=== PATIENT | male | born 1940 ===

== ENCOUNTER → 2020-03-22 | Outpatient (CLI) | payer MEDICARE | LOC: LAB SHORT 08:05 → PLD 08:05 | DX: L30.8 Other specified dermatitis (principal) | CPT/HCPCS: 88312 ==

== ENCOUNTER 2021-09-25 11:15 | Day surgery (SDC) | payer MEDICARE ==
[~2021-09-25] VITALS: Ht 175.3 cm; Wt 104.2 kg
[2021-09-25] MEDS ORDERED: Metoprolol Succ25 MG PO (11:34)
[2021-09-25] MEDS ORDERED: ELIQUIS5 M2 PO (11:34)
[2021-09-25] MEDS ORDERED: AMLO10 PO (11:34)
[2021-09-25] MEDS ORDERED: LOSARTAN POTAS100 M1 PO (11:35)
[2021-09-25] MEDS ORDERED: TRAZ150T57 PO (11:35)
[2021-09-25] MEDS ORDERED: ATOR10 PO (11:35)
[2021-09-25] MEDS ORDERED: METF500 PO (11:35)
== END 2021-09-25 12:58 | disposition home or self-care (01) ==
LOC: ORSCSDS 11:15
PROVIDERS: Ophthalmology
PROC: 08RJ3JZ Replacement of Right Lens with Synthetic Substitute, Percutaneous Approach (ICD-10-PCS; principal; 2021-09-25 13:00)
DX: H25.13 Age-related nuclear cataract, bilateral (principal); I48.91 Unspecified atrial fibrillation; E11.9 Type 2 diabetes mellitus without complications; R06.02 Shortness of breath; Z79.84 Long term (current) use of oral hypoglycemic drugs; Z79.899 Other long term (current) drug therapy
CPT/HCPCS: 82947; J2001; J2250; J3010; J3301; J7040; V2632

== ENCOUNTER 2022-01-31 11:48 | Emergency (ER) | payer MEDICARE ==
[~2022-01-31] VITALS: Ht 175.3 cm; Wt 103.4 kg
[~2022-01-31 11:48] MED LIST: AMLO10 PO; ATOR10 PO; ELIQUIS5 M2 PO; LOSARTAN POTAS100 M1 PO; METF500 PO; Metoprolol Succ25 MG PO; TRAZ150T57 PO
[2022-01-31 12:20] LABS: BASOPHILS ABSOLUTE AUTO 0.02 K/mm3 (0.00-0.23); BASOPHILS PERCENT AUTO 0 % (0-2); EOSINOPHILS ABSOLUTE AUTO 0.05 K/mm3 (0.00-0.68); EOSINOPHILS PERCENT AUTO 1 % (0-6); Hematocrit 44.9 % (37.0-53.0); Hemoglobin 15.5 g/dL (13.5-17.5); IMMATURE GRAN ABSOLUTE AUTO 0.02 K/mm3 (0.00-0.10); IMMATURE GRAN PERCENT AUTO 0 % (0-1); LYMPHOCYTES ABSOLUTE AUTO 0.96 K/mm3 (0.84-5.20); LYMPHOCYTES PERCENT AUTO 12 % (21-46); MONOCYTES ABSOLUTE AUTO 0.72 K/mm3 (0.16-1.47); MONOCYTES PERCENT AUTO 9 % (4-13); Mean Corpuscular HGB 32.4 pg (26.0-34.0); Mean Corpuscular HGB Conc 34.5 g/dL (31.5-36.5); Mean Corpuscular Volume 94 fL (80-100); Mean Platelet Volume 9.8 fL (9.1-12.4); NEUTROPHILS ABSOLUTE AUTO 6.47 K/mm3 (1.96-9.15); NEUTROPHILS PERCENT AUTO 79 % (41-73); Platelet Count 145 K/mm3 (150-400); RDW Coefficient Variation 13.5 % (11.7-14.2); RDW Standard Deviation 46.8 fL (35.1-46.3); Red Blood Cell Count 4.79 M/mm3 (4.30-5.90); White Blood Cell Count 8.24 K/mm3 (4.00-11.30)
[2022-01-31 12:40] LABS: Albumin/Globulin Ratio 1.2 (0.8-1.8); Bilirubin, Total 0.8 mg/dL (0.1-1.0); Bun/Creatinine Ratio 16.2 (12.0-20.0); Calcium, Blood 9.2 mg/dL (8.5-10.1); Creatinine, Blood 0.93 mg/dL (0.60-1.20); Globulin, Blood 3.3 g/dL (2.2-4.0); Magnesium, Blood 1.7 mg/dL (1.6-2.4); Potassium, Blood 3.5 mmol/L (3.5-5.5); Total Protein, Blood 7.3 g/dL (6.4-8.2)
[2022-01-31 13:08] LABS: Influenza A, PCR NEGATIVE (NEGATIVE); Influenza B, PCR NEGATIVE (NEGATIVE); Resp Syncytial Virus, PCR NEGATIVE (NEGATIVE); SARS-Cov-2 (COVID-19) PCR, MMC NEGATIVE (NEGATIVE)
[2022-01-31] MEDS ORDERED: ONDA4ODT MM (14:23)
== END 2022-01-31 15:03 | disposition home or self-care (01) ==
LOC: ER 11:48
PROVIDERS: Student in an Organized Health Care Education/Training Program
DX: R07.9 Chest pain, unspecified (principal); R11.2 Nausea with vomiting, unspecified; I48.91 Unspecified atrial fibrillation; I10 Essential (primary) hypertension; E11.9 Type 2 diabetes mellitus without complications; E78.5 Hyperlipidemia, unspecified; Z20.822 Contact with and (suspected) exposure to COVID-19; Z79.01 Long term (current) use of anticoagulants; Z79.84 Long term (current) use of oral hypoglycemic drugs; Z79.899 Other long term (current) drug therapy
CPT/HCPCS: 0241U; 71046; 80053; 83690; 83735; 83880; 84484; 85025; A9270; J7030

== ENCOUNTER 2025-01-27 10:58 | Emergency (ER) | payer OTHER ==
[~2025-01-27] VITALS: Ht 177.8 cm; Wt 90.7 kg
[~2025-01-27 10:58] MED LIST changes: +ONDA4ODT MM
[2025-01-27 12:21] LABS: BASOPHILS ABSOLUTE AUTO 0.03 K/mm3 (0.00-0.23); BASOPHILS PERCENT AUTO 0 % (0-2); EOSINOPHILS ABSOLUTE AUTO 0.03 K/mm3 (0.00-0.68); EOSINOPHILS PERCENT AUTO 0 % (0-6); Hematocrit 46.8 % (37.0-53.0); Hemoglobin 16.7 g/dL (13.5-17.5); IMMATURE GRAN ABSOLUTE AUTO 0.05 K/mm3 (0.00-0.10); IMMATURE GRAN PERCENT AUTO 0 % (0-1); LYMPHOCYTES ABSOLUTE AUTO 1.29 K/mm3 (0.84-5.20); LYMPHOCYTES PERCENT AUTO 12 % (21-46); MONOCYTES ABSOLUTE AUTO 0.68 K/mm3 (0.16-1.47); MONOCYTES PERCENT AUTO 6 % (4-13); Mean Corpuscular HGB Conc 35.7 g/dL (31.5-36.5); Mean Corpuscular Volume 95 fL (80-100); NEUTROPHILS ABSOLUTE AUTO 9.05 K/mm3 (1.96-9.15); NEUTROPHILS PERCENT AUTO 81 % (41-73); NRBC ABSOLUTE 0.00 K/mm3 (0.00-0.02); NRBC Auto 0.0 /100 WBC (0.0-0.2); Platelet Count 170 K/mm3 (150-400); RDW Coefficient Variation 13.5 % (11.7-14.2); RDW Standard Deviation 46.3 fL (35.1-46.3)
[2025-01-27 12:38] LABS: Alanine Aminotransfer (ALT/SGP 51.0 U/L (12-78); Albumin, Blood 4.2 g/dL (3.4-5.0); Albumin/Globulin Ratio 1.0 (0.8-1.8); Anion Gap 9.0 mmol/L (3-11); Aspartate Aminotrans (AST/SGOT 54.0 U/L (12-37); Bilirubin, Total 1.1 mg/dL (0.1-1.0); Blood Urea Nitrogen 22.0 mg/dL (8-24); CO2, Blood 27.0 mmol/L (21-32); Calcium, Blood 9.3 mg/dL (8.5-10.1); Chloride, Blood 99.0 mmol/L (98-108); Creatinine, Blood 0.86 mg/dL (0.60-1.20); Globulin, Blood 4.2 g/dL (2.2-4.0); Glucose, Blood 199.0 mg/dL (70-99); Potassium, Blood 4.4 mmol/L (3.5-5.5); Sodium, Blood 131.0 mmol/L (136-145); Total Protein, Blood 8.4 g/dL (6.4-8.2)
[2025-01-27 18:19] VITALS: BP 168/110
[2025-01-27] MEDS ORDERED: NS 1,000 ML IV SCH (19:30)
== END 2025-01-27 21:25 | disposition home or self-care (01) ==
LOC: ER 10:58
PROVIDERS: Student in an Organized Health Care Education/Training Program
DX: S01.112A Laceration without foreign body of left eyelid and periocular area, initial encounter (principal); S05.12XA Contusion of eyeball and orbital tissues, left eye, initial encounter; S00.33XA Contusion of nose, initial encounter; I48.91 Unspecified atrial fibrillation; E87.1 Hypo-osmolality and hyponatremia; E11.65 Type 2 diabetes mellitus with hyperglycemia; I10 Essential (primary) hypertension; E78.5 Hyperlipidemia, unspecified; W01.0XXA Fall on same level from slipping, tripping and stumbling without subsequent striking against object, initial encounter; Z79.84 Long term (current) use of oral hypoglycemic drugs; Z79.899 Other long term (current) drug therapy
CPT/HCPCS: 12013; 70450; 80053; 85025; 90471; 90715; 93005; 93010; 96361; 99284-25; J7030